=== PATIENT | female | born 1980 ===

== ENCOUNTER 2025-04-19 11:00 | Inpatient (IN) | payer OTHER ==
[~2025-04-19] VITALS: Ht 154.9 cm; Wt 68.0 kg
[2025-04-19 13:00] VITALS: BP 94/65
[2025-04-19 15:26] LABS: RH POSITIVE
[2025-04-26] MEDS ORDERED: METRONIDAZOLE/SODIUM CHLORIDE 500 MG/100 ML PIGGYBACK IV ONE (09:09)
[2025-04-26] MEDS ORDERED: CEFAZOLIN SODIUM 1,000 MG VIAL ONE ×2 (09:09→16:30)
[2025-04-26] MEDS ORDERED: SURGIFLO APPLICATOR 1 EACH APPL TOP ONE (10:48)
[2025-04-26] MEDS ORDERED: HEMOSTATIC MATRIX WITH THROMBIN KIT TOP ONE (10:48)
[2025-04-26] MEDS ORDERED: POVIDONE-IODINE 118 ML BOTT TOP ONE (12:00)
[2025-04-26] MEDS ORDERED: SUGAMMADEX SODIUM 200 MG/2 ML VIAL IV ONE (12:12)
[2025-04-26] MEDS ORDERED: LIDOCAINE HCL 1% 20 ML VIAL IJ ONE (12:35)
[2025-04-26] MEDS ORDERED: MORPHINE SULFATE 4 MG/ML CARTRIDGE IV PRN (13:00)
[2025-04-26] MEDS ORDERED: ONDANSETRON HCL 2 MG/ML VIAL IV PRN (13:00)
[2025-04-26] MEDS ORDERED: SIMETHICONE 125 MG CAPSULE PO SCH (13:00)
[2025-04-26] MEDS ORDERED: RINGERS SOLUTION,LACTATED 1,000 ML IV SCH (13:00)
[2025-04-26] MEDS ORDERED: OxyCODONE HCL 5 MG TABLET (ROXICODONE) PO PRN (13:00)
[2025-04-26] MEDS ORDERED: SIMETHICONE 125 MG CAPSULE PO ONE (16:30)
[2025-04-26] MEDS ORDERED: GABAPENTIN 300 MG CAPSULE PO ONE (16:30)
[2025-04-26 16:34] LABS: BASO % 0.1 % (0.1-1.2); HEMATOCRIT 33.3 % (34.1-44.9); HEMOGLOBIN 11.5 g/dL (11.2-15.7); LYMPH % 5.4 % (19.3-53.1); MEAN CORPUSCULAR HEMOGLOBIN 31.5 pg (25.6-32.2); MONO # 0.51 (0.24-0.82); NEUT # 15.24 (1.56-6.13); NEUT % 91.1 % (34.0-71.1); PLATELET COUNT 253 K/uL (163-369); RED BLOOD COUNT 3.65 M/uL (3.93-5.22); RED CELL DISTRIBUTION WIDTH 13.4 % (11.6-14.4)
[2025-04-26] MEDS ORDERED: GABAPENTIN 300 MG CAPSULE PO SCH (17:00)
[2025-04-26] MEDS ORDERED: CEFAZOLIN SODIUM 1,000 MG VIAL IV SCH (17:00)
[2025-04-26 17:16] LABS: ALBUMIN 3.4 gm/dL (3.4-5.0); CALCIUM 8.9 mg/dL (8.5-10.1); CREATININE SERUM 0.61 mg/dL (0.55-1.02); GFR 105.59; PHOSPHOROUS 2.7 mg/dL (2.5-4.9); POTASSIUM 3.81 mEq/L (3.5-5.1)
[2025-04-26 17:26] VITALS: BP 94/65; O2SAT 99
[2025-04-26] MEDS ORDERED: KETOROLAC TROMETHAMINE 30 MG VIAL IM SCH (18:00)
[2025-04-26] MEDS ORDERED: FAMOTIDINE/PF 20 MG/2 ML VIAL IV PUSH SCH (21:00)
[2025-04-27 02:05] VITALS: BP 105/69
[2025-04-27 07:03] LABS: BASO % 0.2 % (0.1-1.2); EOS # 0.02 (0.04-0.54); EOS % 0.2 % (0.7-7.0); HEMATOCRIT 30.2 % (34.1-44.9); HEMOGLOBIN 10.5 g/dL (11.2-15.7); LYMPH # 1.89 (1.18-3.74); LYMPH % 18.3 % (19.3-53.1); MEAN CORPUSCULAR HEMOGLOBIN 32.1 pg (25.6-32.2); MONO # 0.81 (0.24-0.82); MONO % 7.8 % (4.7-12.5); NEUT # 7.56 (1.56-6.13); NEUT % 73.2 % (34.0-71.1); PLATELET COUNT 223 K/uL (163-369); RED BLOOD COUNT 3.27 M/uL (3.93-5.22); RED CELL DISTRIBUTION WIDTH 13.7 % (11.6-14.4)
[2025-04-27 07:42] LABS: ALBUMIN 2.9 gm/dL (3.4-5.0); CALCIUM 8.5 mg/dL (8.5-10.1); CREATININE SERUM 0.53 mg/dL (0.55-1.02); GFR 124.19; PHOSPHOROUS 3.1 mg/dL (2.5-4.9); POTASSIUM 3.6 mEq/L (3.5-5.1)
[2025-04-27] MEDS ORDERED: TRAMADOL HCL 50 MG TABLET PO PRN (07:45)
[2025-04-27 08:00] VITALS: BP 95/51
[2025-04-27] MEDS ORDERED: ENOXAPARIN SODIUM 40 MG/0.4 ML SYRINGE SUBCUTANEO SCH (09:00)
== END 2025-04-27 11:04 | disposition home or self-care (01) | DRG 743 ==
LOC: O/R 04-26 07:02 → SURH 04-26 11:00 → O/R 04-26 14:53 → OB/GYN 04-26 15:32
PROVIDERS: ADMIT Obstetrics & Gynecology Gynecologic Oncology; ATTEND Obstetrics & Gynecology Gynecologic Oncology
PROC: 0UT74ZZ Resection of Bilateral Fallopian Tubes, Percutaneous Endoscopic Approach (ICD-10-PCS; 2025-04-26)
PROC: 0UT24ZZ Resection of Bilateral Ovaries, Percutaneous Endoscopic Approach (ICD-10-PCS; 2025-04-26)
PROC: 07BC4ZZ Excision of Pelvis Lymphatic, Percutaneous Endoscopic Approach (ICD-10-PCS; 2025-04-26)
PROC: 8E0W4CZ Robotic Assisted Procedure of Trunk Region, Percutaneous Endoscopic Approach (ICD-10-PCS; 2025-04-26)
PROC: 0UT94ZZ Resection of Uterus, Percutaneous Endoscopic Approach (ICD-10-PCS; principal; 2025-04-26 13:15)
DX: D25.1 Intramural leiomyoma of uterus (principal); N72 Inflammatory disease of cervix uteri; N80.03 Adenomyosis of the uterus; D36.0 Benign neoplasm of lymph nodes
CPT/HCPCS: 58548; S2900